=== PATIENT | female | born 1980 | race Caucasian/White ===

== ENCOUNTER 2018-06-01 21:29 | Inpatient (IN) | payer OTHER, MEDICARE ==
[~2018-06-01] VITALS: Ht 167.6 cm; Wt 107.1 kg
[~2018-06-01 21:29] MED LIST: ACET325T14 PO; ASPI-496 PO; CALC0.25 PO; CHOL100015 PO; CLIN300C8 PO; DOCU100C33 PO; DULO20CA45 PO; FLUT9.9S INH; HYDR-3241 PO; LORA10CA PO; MAG30ORA2 PO; METO25TA4 PO; MYCO360T PO; PANT40TA3 PO; SIRO1TAB PO; TACR1CAP4 PO; TRAM50TA2 PO; URSO300C12 PO; VIT1TABL59 PO; WARF5TAB PO
--- NOTE | 2018-06-01 22:38 | NUR ---
FIRST CONTACT WITH PT. PT C/O RLQ ABD PAIN SINCE YESTERDAY. PT HAS GASTRIC PAIN X 2 DAYS. PT ALSO C/O NAUSEA AND DRY-HEAVING. DENIES V/D. LBM ON THURSDAY. LMP THIS MONTH. HX OF GASTRIC BYPASS/LIVER TRANSPLANT. PT'S AOX4. RESPS EVEN AND UNLABORED. BP/SPO2 MONITORS IN PLACE. CALL LIGHT WITHIN REACH.
[2018-06-01] MEDS ORDERED: CYCL-259 PO (22:49)
[2018-06-01] MEDS ORDERED: [UNRECOGNIZED DRUG - CODE] PO (22:49)
[2018-06-01] MEDS ORDERED: ONDANSETRON 2MG/ML, 2ML ONE (23:20)
[2018-06-01] MEDS ORDERED: MORPHINE SULFATE 4 MG/ML, 1ML ONE (23:20)
[2018-06-01 23:27] LABS: BASOPHILS # (AUTO) 0.07 x10^3/uL (0-0.1); BASOPHILS % (AUTO) 1 % (0-1); EOSINOPHILS % (AUTO) 1 % (1-7); LYMPHOCYTES # (AUTO) 1.44 x10^3/uL (1-3.4); LYMPHOCYTES % (AUTO) 15 % (22-44); MD NO; MEAN CORPUSCULAR HEMOGLOBIN 26.8 pg (27.0-34.8); MEAN CORPUSCULAR HGB CONC 32.5 g/dL (32.4-35.8); MEAN CORPUSCULAR VOLUME 82.5 fL (80-100); MEAN PLATELET VOLUME 8.7 fL (7.4-10.4); MONOCYTES # (AUTO) 0.79 x10^3/uL (0.2-0.8); MONOCYTES % (AUTO) 8 % (2-9); NEUTROPHILS # (AUTO) 7.46 x10^3/uL (1.8-6.8); NEUTROPHILS % (AUTO) 76 % (42-75); PLATELET COUNT 333 x10^3/uL (130-400); RED BLOOD COUNT 4.52 x10^6/uL (3.82-5.3)
[2018-06-01] MEDS ORDERED: MORPHINE SULFATE 4 MG/ML, 1ML IVPush PRN (23:30)
[2018-06-01] MEDS ORDERED: ONDANSETRON 2MG/ML, 2ML IVPush ONE (23:30)
--- NOTE | 2018-06-01 23:35 | NUR ---
PT MEDICATED PER EMAR. PT TOLERATED WELL. PT'S AOX4. RESPS EVEN AND UNLABORED.
[2018-06-01 23:38] LABS: ALANINE AMINOTRANSFERASE 70 U/L (12-78); ANION GAP 6 mmol/L (5-15); CALCIUM 8.4 mg/dL (8.5-10.1); CHLORIDE 110 mmol/L (98-107); CREATININE 1.28 mg/dL (0.55-1.02)
[2018-06-01 23:39] LABS: MICROSCOPIC INDICATED
[2018-06-01 23:40] LABS: CULTURE INDICATED? YES
[2018-06-01 23:43] LABS: ALKALINE PHOSPHATASE 232 U/L (45-117); BILIRUBIN,TOTAL 1.1 mg/dL (0.2-1.0)
[2018-06-01 23:48] LABS: INTERNATIONAL NORMALIZED RATIO 1.33 (0.93-1.1); PROTHROMBIN TIME 13.9 Seconds (9.6-11.5)
--- NOTE | 2018-06-02 00:03 | NUR ---
PT IN CT NOW.
[2018-06-02] MEDS ORDERED: OMNIPAQUE 350 MG/ML, 100ML BOTTLE ONE (00:10)
--- NOTE | 2018-06-02 00:21 | NUR ---
PT BACK TO ROOM FROM CT. PT'S PAIN LEVEL REDUCED TO 4/10 AT THIS TIME.
--- NOTE | 2018-06-02 00:32 | NUR ---
PT AMB TO BR AND BACK TO ROOM WITH STEADY GAIT.
[2018-06-02] MEDS ORDERED: SODIUM CHLORIDE 0.9% 1,000 ML IV ONE (01:00)
[2018-06-02] MEDS ORDERED: CEFOTETAN PMX 2GM/50ML 50 ML IV ONE (01:00)
[2018-06-02] MEDS ORDERED: CEFTRIAXONE PMX 2GM/50ML 50 ML ONE (01:14)
[2018-06-02] MEDS ORDERED: FENTANYL PF 250 MCG/5ML ONE ×2 (01:20→13:12)
[2018-06-02] MEDS ORDERED: MIDAZOLAM 1 MG/ML, 2ML ONE (01:20)
--- NOTE | 2018-06-02 01:27 | NUR ---
IV ABX INITIATED NOW. NO BLOOD CULTURE NEEDED AND EDMD NOTIFIED.
[2018-06-02] MEDS ORDERED: methylPREDNISolone SOD SUCC 125 MG/2 ML ONE (01:30)
[2018-06-02] MEDS ORDERED: DIPHENHYDRAMINE 50 MG/ML, 1ML ONE (01:30)
[2018-06-02] MEDS ORDERED: EPINEPHRINE 1 MG/ML, 1ML SQ ONE (01:30)
[2018-06-02] MEDS ORDERED: DIPHENHYDRAMINE 50 MG/ML, 1ML IVPush ONE (01:30)
[2018-06-02] MEDS: methylPREDNISolone SOD SUCC 125 MG/2 ML IVPush SCH ×2 (01:36→03:36)
[2018-06-02] MEDS ORDERED: ONDANSETRON 2MG/ML, 2ML ONE ×2 (01:36→14:17)
--- NOTE | 2018-06-02 01:40 | NUR ---
PT HAS RACTION TO ABX. ENTIRE BODY TURNED RED AND SOB. ABX STOPPED. EDMD NOTIFIED. MD AT BEDSIDE. EMERGENCY MEDS GIVEN PER ORDER. EPI NOT GIVEN BY MD VERVAL ORDER AT THIS TIME.
--- NOTE | 2018-06-02 01:44 | NUR ---
SURGERY TEAM CAME HERE BUT PT WAS NOT ABLE TO GO D/T ALLERGIC REACTION.
[2018-06-02] MEDS ORDERED: ONDANSETRON 2MG/ML, 2ML IVPush ONE (02:00)
--- NOTE | 2018-06-02 02:13 | NUR ---
REPORT GIVEN TO ALEX BAUTISTA. ALL QUESTIONS ANSWERED.
[2018-06-02 02:27] VITALS: BP 127/72
[2018-06-02] MEDS ORDERED: CIPROFLOXACIN/PMX 400MG/200ML 200 ML IV ONE (02:30)
[2018-06-02] MEDS ORDERED: METRONIDAZOLE PMX 500MG/100ML 100 ML IV ONE (02:30)
[2018-06-02] MEDS ORDERED: morphine SULFATE 10 MG/ML, 1ML IVPush PRN ×2 (03:30)
[2018-06-02] MEDS ORDERED: ONDANSETRON ODT 4 MG PO PRN (04:00)
[2018-06-02] MEDS ORDERED: hydrALAzine 20 MG/ML, 1ML IVPush PRN (04:00)
[2018-06-02] MEDS ORDERED: PROMETHAZINE 25 MG/ML, 1ML IM PRN (04:00)
[2018-06-02] MEDS ORDERED: ONDANSETRON 2MG/ML, 2ML IVPush PRN (04:00)
[2018-06-02] MEDS: morphine SULFATE 10 MG/ML, 1ML IVPush PRN ×2 (04:18→07:32)
[2018-06-02] MEDS ORDERED: PHARMACY INSTRUCTION MC PRN (04:30)
[2018-06-02] MEDS: SODIUM CHLORIDE 0.9% 1,000 ML IV SCH ×2 (04:48→22:58)
[2018-06-02] MEDS: CIPROFLOXACIN/PMX 400MG/200ML 200 ML IV SCH ×2 (04:48→17:31)
[2018-06-02 06:03] LABS: FREE T4 (FREE THYROXINE) 1.62 ng/dL (0.76-1.46); THYROID STIMULATING HORMONE 0.71 mIU/L (0.358-3.740)
[2018-06-02 06:05] LABS: MEAN CORPUSCULAR HEMOGLOBIN 26.6 pg (27.0-34.8); MEAN CORPUSCULAR HGB CONC 32.5 g/dL (32.4-35.8); MEAN PLATELET VOLUME 9.2 fL (7.4-10.4); PLATELET COUNT 390 x10^3/uL (130-400); RED BLOOD COUNT 4.71 x10^6/uL (3.82-5.3); RED CELL DISTRIBUTION WIDTH 14.4 % (9.6-15.2)
[2018-06-02] MEDS: METRONIDAZOLE PMX 500MG/100ML 100 ML IV SCH ×2 (06:05→16:12)
[2018-06-02 06:16] LABS: CHLORIDE 110 mmol/L (98-107)
[2018-06-02 06:18] LABS: MD YES
[2018-06-02 06:20] LABS: BAND#(MANUAL) 2.15 x10^3/uL; BANDS%(MANUAL) 12 % (0-7); BASOS#(MANUAL) 0.18 x10^3/uL (0-0.1); BASOS% (MANUAL) 1 % (0-1); LYMPH#(MANUAL) 0.72 x10^3/uL (1-3.4); LYMPHS% (MANUAL) 4 % (22-44); MONOS#(MANUAL) 1.07 x10^3/uL (0.3-2.7); MONOS% (MANUAL) 6 % (2-9); SEG#(MANUAL) 13.78 x10^3/uL (1.8-6.8); SEGS% (MANUAL) 77 % (42-75)
[2018-06-02 06:22] LABS: <PLATELET ESTIMATE> ADEQUATE; LARGE PLATELETS 1+; POLYCHROMASIA 1+
[2018-06-02 06:26] LABS: ALANINE AMINOTRANSFERASE 72 U/L (12-78); ALBUMIN 3.1 g/dL (3.4-5.0); ALKALINE PHOSPHATASE 234 U/L (45-117); ANION GAP 7 mmol/L (5-15); BILIRUBIN,TOTAL 1.2 mg/dL (0.2-1.0); CALCIUM 8.4 mg/dL (8.5-10.1); CHOL/HDL RATIO 2.8; CHOLESTEROL, TOTAL 161 mg/dL (140-239); HDL CHOL % 35 % (28-40); HDL CHOLESTEROL (DIRECT) 57 mg/dL (40-60); LDL CHOLESTEROL,CALCULATED 87 mg/dL (54-169); LDL/HDL RATIO 1.5 (0.5-3.0); TOTAL PROTEIN 7.1 g/dL (6.4-8.2); TRIGLYCERIDES 83 mg/dL (50-200); VLDL CHOLESTEROL 17 mg/dL (0-25)
[2018-06-02 07:11] LABS: HEMOGLOBIN A1C 4.9 % (4.2-6.3)
[2018-06-02] MEDS ORDERED: MORPHINE SULFATE 4 MG/ML, 1ML ONE (07:24)
[2018-06-02 07:49] VITALS: BP 119/57
[2018-06-02] MEDS: TACROLIMUS 1 MG CAPSULE PO SCH (09:00)
[2018-06-02] MEDS: CYCLOBENZAPRINE 10 MG TABLET PO SCH ×3 (09:00→22:14)
[2018-06-02] MEDS ORDERED: METOPROLOL TARTRATE 25 MG TABLET PO SCH (09:00)
[2018-06-02] MEDS ORDERED: DULOXETINE 20 MG CAPSULE.DR PO SCH ×2 (09:00→21:00)
[2018-06-02] MEDS: PANTOPROZOLE 40MG TABLET PO SCH (09:00)
[2018-06-02] MEDS ORDERED: SIROLIMUS 1 MG HOMEMEDPO SCH ×2 (09:00→21:00)
[2018-06-02] MEDS ORDERED: MAGNESIUM HYDROXIDE PO SCH (09:00)
[2018-06-02] MEDS ORDERED: FISH OIL PO SCH (09:00)
[2018-06-02] MEDS ORDERED: [UNRECOGNIZED DRUG - OTHER] PO SCH (09:00)
[2018-06-02] MEDS ORDERED: EPA PO SCH (09:00)
[2018-06-02] MEDS: URSODIOL 300 MG CAPSULE PO SCH ×3 (09:00→22:13)
[2018-06-02] MEDS: ASPIRIN 81 MG TABLET CHEW PO SCH (09:00)
[2018-06-02] MEDS ORDERED: ALUMINUM HYDROXIDE PO SCH (09:00)
[2018-06-02] MEDS ORDERED: [UNRECOGNIZED DRUG - OTHER] PO SCH (09:00)
[2018-06-02] MEDS ORDERED: DHA PO SCH (09:00)
[2018-06-02] MEDS ORDERED: OMEGA PO SCH (09:00)
[2018-06-02] MEDS: FLUTICASONE NASAL SPRAY 16GM NAS SCH (09:00)
[2018-06-02] MEDS ORDERED: SIMETHICONE PO SCH (09:00)
[2018-06-02] MEDS ORDERED: BUPIVACAINE/PF-EPI 0.5% 1:200K ONE (10:35)
[2018-06-02] MEDS ORDERED: ONDANSETRON ODT 8 MG PO PRN (13:30)
[2018-06-02] MEDS ORDERED: ONDANSETRON 2MG/ML, 2ML IV PRN (13:30)
[2018-06-02] MEDS ORDERED: OXYcodone 5 MG/5 ML ORAL.SOL UDC PO PRN (13:30)
[2018-06-02] MEDS ORDERED: PROMETHAZINE 25 MG/ML, 1ML IV PRN (13:30)
[2018-06-02] MEDS ORDERED: SUGAMMADEX 200 MG/2 ML IVPush ONE (13:54)
[2018-06-02] MEDS ORDERED: DEXAMETHASONE 4 MG/ML, 1ML ONE (14:17)
[2018-06-02] MEDS ORDERED: SUCCINYLCHOLINE 20 MG/ML, 10ML ONE (14:17)
[2018-06-02] MEDS ORDERED: GLYCOPYRROLATE 0.2MG/1ML, 5ML ONE (14:17)
[2018-06-02] MEDS ORDERED: NEOSTIGMINE 1 MG/ML, 10ML ONE (14:17)
[2018-06-02] MEDS ORDERED: ROCURONIUM 10MG/ML,5ML ONE (14:17)
[2018-06-02] MEDS ORDERED: CEFAZOLIN 1,000 MG ONE (14:17)
[2018-06-02] MEDS ORDERED: PROPOFOL 10 MG/ML, 20ML ONE (14:17)
[2018-06-02] MEDS: HYDROmorphone 2 MG/ML, 1ML IVPush PRN ×4 (14:40→15:05)
[2018-06-02] MEDS ORDERED: OXYcodone 5 MG/5 ML ORAL.SOL UDC ONE (14:40)
[2018-06-02] MEDS ORDERED: FENTANYL PF 100 MCG/2ML ONE (14:40)
[2018-06-02] MEDS ORDERED: HYDROmorphone 2 MG/ML, 1ML ONE (14:40)
[2018-06-02] MEDS: FENTANYL PF 100 MCG/2ML IV PRN ×2 (14:49→15:06)
[2018-06-02] MEDS ORDERED: MEPERIDINE/PF 25MG/ML,1ML ONE (15:15)
[2018-06-02] MEDS ORDERED: MEPERIDINE/PF 25MG/0.5ML IVPush ONE (15:30)
[2018-06-02] MEDS ORDERED: OXYcodone IR 5MG TABLET PO PRN (16:00)
[2018-06-02] MEDS: IBUPROFEN 800 MG TABLET PO SCH (17:31)
[2018-06-02 18:43] VITALS: BP 109/69
[2018-06-02] MEDS: OXYcodone IR 5MG TABLET PO PRN ×2 (19:08→22:57)
[2018-06-02] MEDS ORDERED: TACROLIMUS 1 MG CAPSULE PO SCH (21:00)
[2018-06-02] MEDS ORDERED: METOPROLOL SUCCINATE 50 MG TAB.ER.24H PO SCH (22:00)
[2018-06-02] MEDS ORDERED: METOPROLOL TARTRATE 50 MG TABLET PO SCH (22:30)
[2018-06-03 00:11] VITALS: BP 95/60
[2018-06-03] MEDS: METRONIDAZOLE PMX 500MG/100ML 100 ML IV SCH ×2 (02:47→10:01)
[2018-06-03] MEDS: OXYcodone IR 5MG TABLET PO PRN ×2 (02:59→08:18)
[2018-06-03] MEDS: CIPROFLOXACIN/PMX 400MG/200ML 200 ML IV SCH (04:00)
[2018-06-03 04:11] VITALS: BP 89/48
[2018-06-03 05:26] LABS: INTERNATIONAL NORMALIZED RATIO 1.22 (0.93-1.1); PROTHROMBIN TIME 12.8 Seconds (9.6-11.5)
[2018-06-03] MEDS ORDERED: METOPROLOL TARTRATE 50 MG TABLET PO SCH (06:00)
[2018-06-03] MEDS ORDERED: METOPROLOL SUCCINATE 25 MG TAB.ER.24H PO SCH (06:00)
[2018-06-03 08:12] VITALS: BP 105/65
[2018-06-03] MEDS: PANTOPROZOLE 40MG TABLET PO SCH (08:17)
[2018-06-03] MEDS: URSODIOL 300 MG CAPSULE PO SCH (08:17)
[2018-06-03] MEDS: ASPIRIN 81 MG TABLET CHEW PO SCH (08:17)
[2018-06-03] MEDS: IBUPROFEN 800 MG TABLET PO SCH ×2 (08:18→12:44)
[2018-06-03] MEDS: TACROLIMUS 1 MG CAPSULE PO SCH (08:18)
[2018-06-03] MEDS: CYCLOBENZAPRINE 10 MG TABLET PO SCH (08:18)
[2018-06-03] MEDS: FLUTICASONE NASAL SPRAY 16GM NAS SCH (08:19)
[2018-06-03] MEDS ORDERED: WARFARIN MECH. VALVE PROTOCOL 2.5 to 3.5 XX SCH (09:00)
[2018-06-03] MEDS ORDERED: METOPROLOL TARTRATE 25 MG TABLET PO SCH (09:00)
[2018-06-03] MEDS ORDERED: OXYC5TAB3 PO (12:54)
[2018-06-03 15:25] VITALS: BP 121/76
[2018-06-03] MEDS ORDERED: WARFARIN 7.5 MG TABLET PO-COUM SCH (18:00)
== END 2018-06-03 15:43 | disposition home or self-care (01) | DRG 341 ==
LOC: ED 06-02 00:33 → EDIP 06-02 00:59 → 4NOR 06-02 02:20 → DCLOUNGE 06-03 15:32
PROVIDERS: ADMIT Internal Medicine; ATTEND Internal Medicine
PROC: 0DTJ4ZZ Resection of Appendix, Percutaneous Endoscopic Approach (ICD-10-PCS; principal; 2018-06-02 11:30)
DX: K35.30 Acute appendicitis with localized peritonitis, without perforation or gangrene (principal); N17.0 Acute kidney failure with tubular necrosis; D68.59 Other primary thrombophilia; E44.0 Moderate protein-calorie malnutrition; K51.90 Ulcerative colitis, unspecified, without complications; K74.1 Hepatic sclerosis; T36.95XA Adverse effect of unspecified systemic antibiotic, initial encounter; Z96.643 Presence of artificial hip joint, bilateral; I25.2 Old myocardial infarction; Z79.01 Long term (current) use of anticoagulants; Z82.3 Family history of stroke; Z83.3 Family history of diabetes mellitus; Z95.2 Presence of prosthetic heart valve; Z98.84 Bariatric surgery status; Z88.0 Allergy status to penicillin; Z88.8 Allergy status to other drugs, medicaments and biological substances; Z68.38 Body mass index [BMI] 38.0-38.9, adult
CPT/HCPCS: 36415; 74177; 80053; 80061; 81001; 83036; 83690; 83735; 84439; 84443; 84703; 85025; 85610; 85730; 86850; 86900; 86923; 87086; 88304; 93005; 99285; G0378; J0690; J0744; J1100; J1170; J2175; J2250; J2405; J2704; J2710; J3010; J3490; J7507; J7518; Q9967; J0330; J1200; J2270; J2930; J7030

== ENCOUNTER 2018-10-01 16:40 | Emergency (ER) | payer OTHER, MEDICARE ==
[~2018-10-01] VITALS: Ht 165.1 cm; Wt 106.9 kg
[~2018-10-01 16:40] MED LIST changes: +CYCL-259 PO; +OXYC5TAB3 PO; +[UNRECOGNIZED DRUG - CODE] PO
--- NOTE | 2018-10-01 17:12 | NUR ---
PT AMBULATORY TO ROOM. NADN. CONNELL. COMPLAINING OF PAIN AND OCCASSIONAL SWELLING IN THROAT. STATES SHE IS SPITTING OUT YELLOW MUCUS THAT IS BLOOD TINGED. SHE HAS BEEN HAVING A NOSE BLEED ON AND OFF FOR ONE WEEK. STATES SHE SAW HER DOCTOR TODAY WHO RECOMMENDED SHE COME TO THE ER HER INR IS 8. BLANKET GIVEN. DENIES NEEDS. CALL LIGHT IN REACH.
[2018-10-01 17:34] LABS: BASOPHILS # (AUTO) 0.03 x10^3/uL (0-0.1); BASOPHILS % (AUTO) 0 % (0-1); EOSINOPHILS # (AUTO) 0.15 x10^3/uL (0-0.4); EOSINOPHILS % (AUTO) 2 % (1-7); LYMPHOCYTES # (AUTO) 1.61 x10^3/uL (1-3.4); LYMPHOCYTES % (AUTO) 19 % (22-44); MD NO; MEAN CORPUSCULAR HEMOGLOBIN 27.2 pg (27.0-34.8); MEAN CORPUSCULAR HGB CONC 32.3 g/dL (32.4-35.8); MEAN CORPUSCULAR VOLUME 84.4 fL (80-100); MEAN PLATELET VOLUME 8.4 fL (7.4-10.4); MONOCYTES # (AUTO) 0.84 x10^3/uL (0.2-0.8); MONOCYTES % (AUTO) 10 % (2-9); NEUTROPHILS # (AUTO) 5.69 x10^3/uL (1.8-6.8); NEUTROPHILS % (AUTO) 68 % (42-75); PLATELET COUNT 340 x10^3/uL (130-400); RED BLOOD COUNT 4.13 x10^6/uL (3.82-5.3); RED CELL DISTRIBUTION WIDTH 15.8 % (9.6-15.2)
[2018-10-01 17:56] LABS: ALANINE AMINOTRANSFERASE 31 U/L (12-78); ANION GAP 3 mmol/L (5-15); CALCIUM 8.4 mg/dL (8.5-10.1); CHLORIDE 112 mmol/L (98-107); CREATININE 1.32 mg/dL (0.55-1.02)
[2018-10-01 17:58] LABS: ALKALINE PHOSPHATASE 151 U/L (45-117); BILIRUBIN,TOTAL 0.3 mg/dL (0.2-1.0); TOTAL PROTEIN 6.6 g/dL (6.4-8.2)
[2018-10-01 18:14] LABS: INTERNATIONAL NORMALIZED RATIO 8.11 (0.93-1.1); PROTHROMBIN TIME 78.6 Seconds (9.6-11.5)
--- NOTE | 2018-10-01 18:27 | NUR ---
AT BEDSIDE PERFORMING PHYSICAL ASSESSMENT AND UPDATING PT ON POC. VSS. SANTILLAN. CALL LIGHT IN REACH.
--- NOTE | 2018-10-01 18:55 | NUR ---
REPORT GIVEN TO LILY WASHINGTON.
--- NOTE | 2018-10-01 18:57 | NUR ---
REPORT RECEIVED FROM ADRIÁN BAUTISTA.
[2018-10-01] MEDS ORDERED: CLINDAMYCIN 300 MG CAPSULE PO ONE (19:00)
[2018-10-01] MEDS ORDERED: CLINDAMYCIN 300 MG CAPSULE ONE (19:00)
[2018-10-01 19:02] VITALS: BP 139/70
--- NOTE | 2018-10-01 19:03 | NUR ---
PT MEDICATED PER EMAR. PT TOLERATED WELL. PT'S AOX4. RESPS EVEN AND UNLABORED.
--- NOTE | 2018-10-01 19:16 | NUR ---
PT GIVEN DC INSTRUCTIONS AND SCRIPTS. PT EDUCATED REGARDING DC MEDICATIONS. PT'S AOX4. RESPS EVEN AND UNLABORED. PT AMB TO DC WITH STEADY GAIT. NO ACUTE DISTRESS AT DC.
== END 2018-10-01 19:17 | disposition home or self-care (01) ==
LOC: ED 19:10
DX: J06.9 Acute upper respiratory infection, unspecified (principal); R79.1 Abnormal coagulation profile; Z94.4 Liver transplant status; Z90.49 Acquired absence of other specified parts of digestive tract
CPT/HCPCS: 36415; 80053; 85025; 85610; 85730; 87081; 87880; 99283

== ENCOUNTER 2019-10-19 14:39 | Emergency (ER) | payer OTHER, MEDICARE ==
[~2019-10-19] VITALS: Ht 175.3 cm; Wt 106.1 kg
[~2019-10-19 14:39] MED LIST changes: -TACR1CAP4 PO; +TACR1CAP5 PO; -WARF5TAB PO; +WARF5TAB2 PO
[2019-10-19 16:18] LABS: ALBUMIN 3.2 g/dL (3.4-5.0); ANION GAP 3 mmol/L (5-15); CALCIUM 8.3 mg/dL (8.5-10.1); CHLORIDE 112 mmol/L (98-107); CREATININE 1.27 mg/dL (0.55-1.02)
[2019-10-19 16:19] LABS: BASOPHILS # (AUTO) 0.04 x10^3/uL (0-0.1); BASOPHILS % (AUTO) 1 % (0-1); EOSINOPHILS # (AUTO) 0.07 x10^3/uL (0-0.4); EOSINOPHILS % (AUTO) 1 % (1-7); LYMPHOCYTES # (AUTO) 1.91 x10^3/uL (1-3.4); LYMPHOCYTES % (AUTO) 29 % (22-44); MD NO; MEAN CORPUSCULAR HEMOGLOBIN 26.4 pg (27.0-34.8); MEAN CORPUSCULAR HGB CONC 31.6 g/dL (32.4-35.8); MEAN CORPUSCULAR VOLUME 83.5 fL (80-100); MEAN PLATELET VOLUME 9.4 fL (7.4-10.4); MONOCYTES # (AUTO) 0.75 x10^3/uL (0.2-0.8); MONOCYTES % (AUTO) 11 % (2-9); NEUTROPHILS # (AUTO) 3.86 x10^3/uL (1.8-6.8); NEUTROPHILS % (AUTO) 58 % (42-75); PLATELET COUNT 276 x10^3/uL (130-400); RED BLOOD COUNT 4.81 x10^6/uL (3.82-5.3); RED CELL DISTRIBUTION WIDTH 15.3 % (9.6-15.2)
--- NOTE | 2019-10-19 16:40 | NUR ---
CHECKMAN: PT TO ROOM FROM LOBBY
--- NOTE | 2019-10-19 16:42 | NUR ---
PATIENT AMBULATORY WITH STEADY GAIT, UA SPECIMEN OBTAINED.
--- NOTE | 2019-10-19 17:00 | NUR ---
THIS IS A 39 YO FEMALE COMING IN FOR RIGHT SIDED ARM NUMBNESS AND PAIN INCREASING THIS MORNING. PATIENT STATES "IT STARTED IN MY LEFT ARM THIS PAST WEEKEND, THEN IT SWITCHED OVERNIGHT AND IT'S REALLY PAINFULL AND A LITTLE SWOLLEN NOW". PATIENT IS COVID +, TESTED October. HX CHRONIC BACK PAIN, RECENTLY HAD SHOOTING PAINS DOWN LEGS AND INTO NECK WITH NECK STIFFNESS. SCHEDULED FOR MRI THIS ThursdayOctober. DENIES SOB/CHEST PAINS, LUNG SOUNDS CLEAR THROUGHOUT. VSS, NADN, CSM INTACT, EQUAL STRENGTH BILATERALLY IN ALL EXTREMITIES, PAIN NOTED WITH PUSHING/PULLING TO RIGHT ARM. MONITORING IN PLACE. UA SENT
[2019-10-19 17:23] LABS: MICROSCOPIC INDICATED
--- NOTE | 2019-10-19 18:04 | NUR ---
REPORT GIVEN TO LILY OLMEDO. PLAN OF CARE DISCUSSED
[2019-10-19 18:14] VITALS: BP 142/67
== END 2019-10-19 18:39 | disposition home or self-care (01) ==
LOC: ED 16:51
DX: M54.12 Radiculopathy, cervical region (principal); R20.2 Paresthesia of skin
CPT/HCPCS: 36415; 72050; 80048; 81001; 82040; 85025; 87086; 87147; 99284